=== PATIENT | female | born 1960 | race Caucasian/White ===

== ENCOUNTER 2019-04-08 20:19 | Emergency (ER) | payer BC, OTHER ==
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
== END 2019-04-08 23:29 | disposition home or self-care (01) ==
LOC: ER 20:19
DX: S64.92XA Injury of unspecified nerve at wrist and hand level of left arm, initial encounter (principal); S64.91XA Injury of unspecified nerve at wrist and hand level of right arm, initial encounter; V49.9XXA Car occupant (driver) (passenger) injured in unspecified traffic accident, initial encounter; Z79.82 Long term (current) use of aspirin
CPT/HCPCS: 70450; 72125; 99283